=== PATIENT | male | born 1960 | race Caucasian/White ===

== ENCOUNTER 2017-04-23 22:11 | Emergency (ER) | payer BC, OTHER ==
[~2017-04-23] VITALS: Ht 175.3 cm; Wt 102.0 kg
[~2017-04-23 22:11] MED LIST: ASPI81TA23 PO; ATOR40TA16 PO; LISI-515 PO; MELO7.5T27 PO
[2017-04-23 22:13] VITALS: BP 189/100; PULSE 92; RESP 16; TEMP 99; O2SAT 95
[2017-04-24] MEDS ORDERED: IBUPROFEN 800 MG TAB PO ONE (00:15)
[2017-04-24] MEDS ORDERED: ACETAMINOPHEN/HYDROcodone 325 MG/5 MG TAB PO ONE (00:15)
[2017-04-24] MEDS ORDERED: TETANUS/DIPHTHERIA TOXOID ADULT 0.5 ML VIAL IM ONE (00:15)
[2017-04-24] MEDS ORDERED: CEPH-460 PO (00:17)
[2017-04-24] MEDS ORDERED: DICL75TA PO (00:17)
--- NOTE | 2017-04-24 00:21 | PD ---
HPI Chief Complaint: Pain: Acute or Chronic Time Seen by Provider: 23:40 Travel History International Travel<30 days: No Contact w/Intl Traveler<30days: No Traveled to known affect area: No History of Present Illness HPI 56-year-old [id number] white male presents to emergency Department with complaints of left elbow pain since working in his yard putting up a fence this past weekend. He's had increasing pain, swelling and redness in his left elbow. Worse with palpation and movement. He has had no alleviating factors. He denies any fever or chills. No nausea vomiting. No prior injury. No history of skin infection. Unsure of last tetanus shot. PFSH Past Medical History Narrative Medical Hypertension Cardiovascular Problems: Yes (HTN) Hypertension: Yes Musculoskeletal: No Neurologic: No Respiratory: No Tetanus Vaccination: > 5 Years Influenza Vaccination: No Past Surgical History Surgical History: No Previous Surgery Social History Alcohol Use: Yes (2-3 vodka drinks daily) Tobacco Use: No Substance Use: No Allergies-Medications (Allergen,Severity, Reaction): Coded Allergies: No Known Allergies (Unverified Adverse Reaction, Unknown, 04/23/17) Reported Meds & Prescriptions Reported Meds & Active Scripts Active Diclofenac Sodium DR (Diclofenac Sodium) 75 Mg Tabdr 75 Mg PO BID Keflex (Cephalexin) 500 Mg Capsule 500 Mg PO Q6H Lisinopril 20 Mg Tab 20 Mg PO DAILY Aspirin EC (Aspirin) 81 Mg Tabdr 81 Mg PO DAILY Review of Systems General / Constitutional: No: Fever Eyes: No: Visual changes HENT: No: Headaches Cardiovascular: No: Chest Pain or Discomfort Respiratory: No: Shortness of Breath Gastrointestinal: No: Abdominal Pain Genitourinary: No: Dysuria Musculoskeletal: Positive: Arthralgias, Limited ROM, Edema, Pain Skin: No Rash Neurologic: No: Weakness Psychiatric: No: Depression Endocrine: No: Polydipsia Hematologic/Lymphatic: No: Easy Bruising Physical Exam Narrative GENERAL: Well-developed, well-nourished in no acute distress. Nontoxic appearing. HEAD: Normocephalic, atraumatic. EYES: Pupils equal round and reactive. Extraocular motions intact. No scleral icterus. No injection or drainage. ENT: TMs clear without erythema. The external auditory canals clear. Nose: clear . Posterior pharynx is pink and moist. No tonsillar edema or exudate. Uvula midline. Airway patent. NECK: Trachea midline.Supple, nontender, moves head freely. No central bony tenderness or spasm. CARDIOVASCULAR: Regular rate and rhythm without murmurs, gallops, or rubs. RESPIRATORY: Clear to auscultation. Breath sounds equal bilaterally. No wheezes , rales, or rhonchi. GASTROINTESTINAL: Abdomen soft, non-tender, nondistended. No hepato-splenomegaly , or palpable masses. No guarding. EXTREMITIES: No clubbing, cyanosis. Examination of the left upper extremity reveals pain, swelling over the olecranon. It is tender, red and warm. No fluctuance. BACK: Nontender without deformity or crepitance. No flank tenderness. Data Data Last Documented VS Vital Signs Date Time Temp Pulse Resp B/P (MAP) Pulse Ox O2 Delivery O2 Flow Rate FiO2 04/23/17 22:13 99.0 92 16 189/100 (129) 95 Orders Orders Ceftriaxone Inj (Rocephin Inj) (04/24/17 00:15) Tetanus/Diphtheria Tox Adult (Tetanus/Di (04/24/17 00:15) Ibuprofen (Motrin) (04/24/17 00:15) Acetamin-Hydrocod 325-5 Mg ([employer] 5-325 (04/24/17 00:15) MDM Medical Decision Making Medical Screen Exam Complete: Yes Emergency Medical Condition: Yes Medical Record Reviewed: Yes Differential Diagnosis Differential diagnosis Cellulitis, sprain, strain, bursitis, infectious olecranon bursitis Narrative Course Patient's exam is consistent with an infectious olecranon bursitis. Patient is given Rocephin 1 g IM, nor go 5 mg by mouth and Motrin 800 mg by mouth. Diagnosis Primary Impression: infectious olecranon bursitis Additional Impression: Olecranon bursitis, left elbow Referrals: [facility] 2 days Patient Instructions: Narcotic given in the ED, General Instructions Departure Forms: Tests/Procedures, Work Release Special Instructions: No work 2 days. Additional Instructions: Rest. Elevation above the heart at all times. Warm compresses. Diclofenac and Keflex. Recheck with your doctor or the [facility] in 2 days. Med/Other Pt SpecificInfo: Prescription(s) given, Wound Care Scripts Diclofenac Sodium DR (Diclofenac Sodium DR) 75 Mg Tabdr 75 MG PO BID, #20 TAB 0 Refills Prov: Jenny Angulo DO 04/24/17 Cephalexin (Keflex) 500 Mg Capsule 500 MG PO Q6H for Infection, #40 CAP 0 Refills Prov: Jenny Angulo DO 04/24/17 Disposition: 01 DISCHARGE HOME Condition: Stable Enoch Grimm Apr 24, 2017 00:21
== END 2017-04-24 01:21 | disposition home or self-care (01) ==
LOC: NEPK 22:11
DX: M71.122 Other infective bursitis, left elbow (principal); Z23 Encounter for immunization; I10 Essential (primary) hypertension
CPT/HCPCS: 90471; 90714; 96372; 99284; J0696